=== PATIENT | female | born 1960 | race African-American/Black ===

== ENCOUNTER 2022-09-23 06:16 | Day surgery (SDC) | payer OTHER ==
[2022-09-23] MEDS ORDERED: NA CHLORIDE 0.9% 1,000 ML ONE (06:41)
[2022-09-23] MEDS ORDERED: propofoL 200 MG/20 ML VIAL IV ONE (07:15)
[2022-09-23] MEDS ORDERED: LIDOCAINE 1% MPF 5 ML VIAL ONE (07:15)
[2022-09-23 08:45] VITALS: TEMP 97.2
[2022-09-23 08:54] VITALS: BP 95/40; O2SAT 99
== END 2022-09-23 08:24 | disposition home or self-care (01) ==
LOC: OR 06:16
PROVIDERS: ATTEND Surgery
PROC: 0DJD8ZZ Inspection of Lower Intestinal Tract, Via Natural or Artificial Opening Endoscopic (ICD-10-PCS; principal; 2022-09-23 07:30)
DX: Z12.11 Encounter for screening for malignant neoplasm of colon (principal); K43.9 Ventral hernia without obstruction or gangrene; E11.9 Type 2 diabetes mellitus without complications; E78.00 Pure hypercholesterolemia, unspecified; K64.8 Other hemorrhoids; K64.4 Residual hemorrhoidal skin tags
CPT/HCPCS: 82947; J2704; J2001; J7030; G0121

== ENCOUNTER 2022-10-21 07:08 | Day surgery (SDC) | payer OTHER ==
[2022-10-19 15:25] LABS: Absolute Lymphocytes (CBC) 2.4 K/uL (0.7-4.9); Lymphocytes % 32.5 % (15.3-44.8); MCV 85.1 fL (80-100); MPV 9.5 fL (7.6-11.3)
[2022-10-19 15:43] LABS: Potassium 3.9 mEq/L (3.5-5.1)
--- NOTE | 2022-10-19 15:44 | RAD REPORT ---
EXAM DESCRIPTION: Darrin Caban And Lat (2 Views)10/19/2022 3:21 pm CLINICAL HISTORY: Preop for hernia repair. Hypertension COMPARISON: None FINDINGS: Calcified hilar lymph nodes. The lungs appear clear of acute infiltrate. The heart is normal size IMPRESSION: No acute abnormalities displayed
--- NOTE | 2022-10-20 13:00 | EKG ---
Test Date: 2022-10-19 Test Time: 15:10:15 [employer] Technician: HIGINIO MEASUREMENT RESULTS: Intervals: Rate: 64 MA: 196 QRSD: 82 QT: 384 QTc: 396 [place]: P: 70 MA: 196 QRS: 42 T: 26 INTERPRETIVE STATEMENTS: Normal sinus rhythm Normal ECG Compared to ECG 07/11/2003 16:09:00 No significant changes Electronically Signed On 10-20-22 12:58:19 CDT by Darron Beard
[2022-10-21] MEDS ORDERED: NA CHLORIDE 0.9% 1,000 ML ONE (07:28)
[2022-10-21] MEDS: CEFAZOLIN SODIUM 1 GM/VIAL ONE ×2 (07:43→08:20)
[2022-10-21] MEDS ORDERED: MIDAZOLAM HCL 2 MG/2 ML INJ ONE (07:49)
[2022-10-21] MEDS ORDERED: FENTANYL CITR 100 MCG/2 ML ONE (07:49)
[2022-10-21] MEDS ORDERED: propofoL 200 MG/20 ML VIAL IV ONE (07:49)
[2022-10-21] MEDS ORDERED: ONDANSETRON 4 MG/2 ML VIAL ONE (07:50)
[2022-10-21] MEDS ORDERED: LIDOCAINE 2% MPF 5 ML VIAL ONE (07:52)
[2022-10-21] MEDS ORDERED: ROCURONIUM 50 MG/5 ML VIAL IV ONE (08:16)
[2022-10-21] MEDS ORDERED: NEOSTIGMINE 1 MG/ML -10 ML VIAL ONE (08:24)
[2022-10-21] MEDS ORDERED: GLYCOPYRROLATE 0.2 MG/ML SYR ONE (08:24)
--- NOTE | 2022-10-21 09:24 | P.BOP ---
Preoperative diagnosis: incarcerated tender ventral hernia Postoperative diagnosis: same Primary procedure: Laparoscopic repair of incarcerated tender ventral hernia with mesh Supervisor [employer] Handling: ABE BATISTA (REGULATORY COMPLIANCE DIRECTOR) Estimated blood loss: <10cc Specimen: sac Findings: as above Anesthesia: General Complications: None Transferred to: Recovery Room Condition: Good
[2022-10-21] MEDS ORDERED: HYDROMORPHONE HCL 1 MG/ML INJ ONE (09:30)
[2022-10-21 09:52] VITALS: BP 119/49
[2022-10-21 10:12] VITALS: TEMP 97.8; O2SAT 95
[2022-10-21] MEDS ORDERED: HYDROCODONE/APAP 5/325 MG TAB ONE (10:34)
[2022-10-21] MEDS ORDERED: HYDROCODONE/APAP 5/325 MG TAB PO ONE (13:30)
== END 2022-10-21 10:58 | disposition home or self-care (01) ==
LOC: OR 07:08
PROVIDERS: ATTEND Surgery
PROC: 0WUF4JZ Supplement Abdominal Wall with Synthetic Substitute, Percutaneous Endoscopic Approach (ICD-10-PCS; principal; 2022-10-21 09:15)
DX: K43.6 Other and unspecified ventral hernia with obstruction, without gangrene (principal); I10 Essential (primary) hypertension; I51.9 Heart disease, unspecified; E78.00 Pure hypercholesterolemia, unspecified
CPT/HCPCS: 93005; 85025; 80048; 36415; 82947 ×2; 88302; 71046; 49594; J2704; J2710; J2001; J2250; J3010; J1170; J2405; J7030; J0690